=== PATIENT | female | born 1975 | race Asian ===

== ENCOUNTER 2024-06-08 16:27 | Emergency (ER) | payer SELFPAY ==
[2024-06-08 16:35] VITALS: BP 129/78; PULSE 67; RESP 18; TEMP 98; BMI 32.3
[2024-06-08] MEDS ORDERED: IBUPROFEN 600 MG TABLET (FP) PO ONE (18:13)
[2024-06-08] MEDS: SODIUM CHLORIDE NASAL SPRAY 44 ML BOTTLE NS ONE (18:35)
[2024-06-08] MEDS: IBUPROFEN 600 MG TABLET (FP) PO ONE (18:35)
[2024-06-08] MEDS: FLUTICASONE PROP 0.05% 16 GM NASAL SPRAY NS ONE (18:36)
== END 2024-06-08 18:36 | disposition home or self-care (01) ==
LOC: JER 16:27
DX: J32.9 Chronic sinusitis, unspecified (principal); R51.9 Headache, unspecified; J34.89 Other specified disorders of nose and nasal sinuses
CPT/HCPCS: 99283-25